=== PATIENT | female | born 1985 | race Caucasian/White ===

== ENCOUNTER 2017-02-24 10:07 | Emergency (ER) | payer OTHER ==
[2017-02-24] MEDS ORDERED: ACETAMINOPHEN 325 MG TABLET PO STA (11:36)
[2017-02-24] MEDS ORDERED: ONDANSETRON ODT 4 MG TABLET TL STA (11:36)
[2017-02-24] MEDS ORDERED: ONDANSETRON ODT 4 MG TABLET ONE (11:39)
[2017-02-24] MEDS ORDERED: ACETAMINOPHEN 325 MG TABLET PO ONE (11:39)
[2017-02-24] MEDS ORDERED: metroNIDAZOLE 250 MG TABLET PO STA (12:20)
[2017-02-24] MEDS ORDERED: metroNIDAZOLE 250 MG TABLET PO ONE (12:30)
== END 2017-02-24 13:25 | disposition home or self-care (01) ==
DX: O20.9 Hemorrhage in early pregnancy, unspecified (principal); O23.591 Infection of other part of genital tract in pregnancy, first trimester; N76.0 Acute vaginitis; B96.89 Other specified bacterial agents as the cause of diseases classified elsewhere; O24.011 Pre-existing type 1 diabetes mellitus, in pregnancy, first trimester; E10.9 Type 1 diabetes mellitus without complications; Z3A.08 8 weeks gestation of pregnancy
CPT/HCPCS: 81001; 81025; 87210; 87491; 87591; 99283; A9270; Q0162